=== PATIENT | female | born 1980 | race American Indian/Alaskan Native ===

== ENCOUNTER 2017-09-11 10:42 | Emergency (ER) | payer SELFPAY ==
--- NOTE | 2017-09-11 15:58 | Emergency Department Report ---
Abscess Boil HPI - HPI Chief Complaint: Extremity Injury, Upper Stated Complaint: INFECTED FINGER Time Seen by Provider: 09/11/17 15:58 Duration: 1 Week Location: Upper Extremity (right middle finger around nailbed. Pain at 9 out of 10, throbbing and worse with movement better with rest) Severity: Moderate History: Yes Pain (right middle finger nailbed), Yes Numbness (some numbness on- and-off), Yes Previous History, No Fever, No Purulent Drainage, No Foreign Body , No Insect Bite HPI: Patient reports that she has some infection around her nail bed of the right middle finger of right hand. She says she was cleaning chicken and she believes some of the juice got under her finger . She reports swelling and redness but also reports that she bites her nails and similar incident in the past. Patient said it feels numb on and off at the tip of her finger. Denies that the pain radiates to her right hand. She says she's been cleaning it with iodine and she says she put something on the skin that turned her skin darker than it usually is. Pain is better with movement rest and worse with movement. Denies any fever or chills. Denies any nausea or vomiting. Denies any restriction of movement fingers of right hand. Denies any nail bed injury. Home Medications: Previous Rx's Medication Instructions Recorded Last Taken Type Cephalexin [Keflex] 500 mg PO Q8HR 10 Days #30 cap 09/11/17 Unknown Rx Ibuprofen [Motrin] 600 mg PO Q8H PRN #12 tablet 09/11/17 Unknown Rx Allergies/Adverse Reactions: Allergies Allergy/AdvReac Type Severity Reaction Status Date / Time No Known Allergies Allergy Unverified 12/13/15 04:48 ED Review of Systems ROS: Stated complaint: INFECTED FINGER Other details as noted in HPI Constitutional: denies: chills, fever Eyes: denies: eye pain, eye discharge, vision change ENT: denies: ear pain, throat pain Respiratory: denies: cough, shortness of breath, SOB with exertion, SOB at rest , wheezing Cardiovascular: denies: chest pain, palpitations Endocrine: no symptoms reported Gastrointestinal: abdominal pain. denies: nausea, vomiting Genitourinary: discharge Musculoskeletal: joint swelling, arthralgia. denies: back pain Skin: change in color, other (redness, swelling and pain to right middle finger. ). denies: rash, lesions Neurological: numbness (right middle finger on and off) Psychiatric: denies: anxiety, depression ED Past Medical Hx - Past Medical History Previous Medical History?: Yes Additional medical history: Ectopic - Surgical History Past Surgical History?: No - Family History Family history: hypertension - Social History Smoking Status: Current Every Day Smoker Substance Use Type: Alcohol Other Social History: and lives with family - Medications Home Medications: Home Medications Medication Instructions Recorded Confirmed Last Taken Type Cephalexin [Keflex] 500 mg PO Q8HR 10 Days #30 cap 09/11/17 Unknown Rx Ibuprofen [Motrin] 600 mg PO Q8H PRN #12 tablet 09/11/17 Unknown Rx ED Abscess Boil Physical Exam - Exam General: Vital signs noted. No distress. Alert and acting appropriately. 37-year-old female well-nourished well-developed in no acute distress. Front/Back of Body, Lg (Color): 1 - Patient with redness, swelling, tenderness, indurated with minimal fluctuation to the distal phalanx of right middle finger. No drainage noted. Tetanus vaccine is updated. He procedure note for details of incision and drainage Size: 1 cm Exam: Yes Tenderness (right distal middle finger), Yes Fluctuance (minimal fluctuance right distal middle finger), Yes Surrounding Cellulites/Erythema ( right distal middle finger), Yes Normal Neurologic Exam (alert and oriented 3, normal gait.), Yes Normal Circulation (no clubbing, cyanosis or edema. +2 pulses in all extremities and no neurovascular compromise), No Lymphangitis, No Crepitation, No Heart Murmur (S1, S2. Regular rate and rhythm) Exam: Lungs: Clear to auscultate bilaterally, no rhonchi wheezes or rales. Skin : Patient with indurated, minimal fluctuance, erythema and tenderness to palpate to right middle finger distal phalanx. No nailbed involvement. Patient also has hyperpigmented areas to dorsal aspect of all phalanx of her right and left fingers. She says she was told she smokes. No lesions or rash noted. Skin is clean and dry and intact. Psych: Normal mood and behavior I & D Note - I & D Note I & D Note: Incision and drainage paronychia: Under sterile procedure, right distal middle finger at phalanx tented iodine followed by normal saline. 1 mL of 0.25%. Bupivacaine without epi instilled around the site. Small amount of pus expressed from site after #18-gauge needle used to make small opening the fluctuant area. Patient tolerated procedure well. Area cleansed and sterile dry dressing placed inside. Boostrix vaccine updated. ED Course Vital Signs 09/11/17 10:47 Temperature 98.1 F Pulse Rate 76 Blood Pressure 142/95 O2 Sat by Pulse 99 Oximetry Vital Signs 09/11/17 09/11/17 10:47 17:46 Temperature 98.1 F 98.8 F Pulse Rate 76 66 Respiratory 18 Rate Blood Pressure 142/95 Blood Pressure 123/86 [Left] O2 Sat by Pulse 99 100 Oximetry - Reevaluation(s) Reevaluation #1: 09/11/17 18:28 Patient given Keflex 500 mg emergency room for paronychia, Motrin 800 mg by mouth for pain and booster 0.5 mL to update tetanus. Please see procedure note for details on incision and drainage of paronychia. Critical care attestation.: If time is entered above; I have spent that time in minutes in the direct care of this critically ill patient, excluding procedure time. ED Medical Decision Making - Medical Decision Making ED course: Patient with Paronychia to her right middle finger after biting nail frequently. Incision and drainage done to paronychia. Please refer to procedure note for details. Patient was given Motrin 800 mg by mouth and emergency room preprocedure for pain, Keflex 500 mg by mouth for cellulitis and abscess and Boostrix 0.5 mL to update tetanus. She had no adverse reaction from medication. I discussed the patient that she needs to stop smoking and because she has areas to fingers that are hyperpigmented and she states that she was told because he is from smoking. She denies given any pain in fingers on a regular basis or at all. I also instructed her she is to stop nailbiting. This leads infection. Patient was undescended discharge instruction, diagnosis and need for follow-up. She says she feels better and discharged home with prescription for Keflex, Motrin and to follow up with primary care physician in 2-3 days if she does not have one to follow up with [facility]. ED Disposition Clinical Impression: Paronychia of right middle finger, Cellulitis of right middle finger, Finger pain, right, Nicotine abuse Disposition: TO HOME OR SELFCARE Is pt being admited?: No Does the pt Need Aspirin: No Condition: Stable Instructions: Paronychia (ED), Arthralgia (ED), How to Stop Smoking (ED) Additional Instructions: Please refer to discharge instruction paperwork on how to stop smoking. Take antibiotic as prescribed for cellulitis and abscess of finger Take Motrin as prescribed for pain but please do not take on an empty stomach as it causes nausea and can cause irritation to stomach lining Follow-up with primary care physician in 2-3 days and if he do not have a primary care physician follow-up without [facility] warm compresses to affected site 3-4 times a day to facilitate soft pain and drainage. Prescriptions: Cephalexin [Keflex] 500 mg PO Q8HR 10 Days #30 cap Ibuprofen [Motrin] 600 mg PO Q8H PRN #12 tablet PRN Reason: Pain Referrals: PRIMARY CARE, [Primary Care Provider] - 2-3 Days [facility] [Outside] - 2-3 Days Forms: Work/School Release Form(ED)
[2017-09-11] MEDS: BOOSTRIX IM ONE (16:22)
[2017-09-11] MEDS: KEFLEX PO ONE (16:24)
[2017-09-11] MEDS: MOTRIN PO ONE (16:24)
[2017-09-11] MEDS: MARCAINE 0.25% INFILTRATI ONE (16:24)
[2017-09-11 17:47] VITALS: BP 123/86
== END 2017-09-11 18:39 | disposition home or self-care (01) ==
LOC: ED 10:42
DX: L03.011 Cellulitis of right finger (principal)
CPT/HCPCS: 90471; 90715; 99282

== ENCOUNTER 2018-11-20 12:56 | Emergency (ER) | payer SELFPAY ==
--- NOTE | 2018-11-20 13:06 | Event Note ---
ED Screening Note Date of service: 11/20/18 Time: 13:02 ED Screening Note: 38 y/o female comes in with abd pain and n/v. Admits to drinking and smoking weed and cig This initial assessment/diagnostic orders/clinical plan/treatment(s) is/are subject to change based on patients health status, clinical progression and re- assessment by fellow clinical providers in the ED. Further treatment and workup at subsequent clinical providers discretion. Patient/guardian urged not to elope from the ED as their condition may be serious if not clinically assessed and managed. Initial orders include:
[2018-11-20 13:34] LABS: Basophils % (Auto) 0.3 % (0.0-1.8); Hematocrit 41.1 % (30.3-42.9); Lymphocytes # (Auto) 1.1 K/mm3 (1.2-5.4); Mean Corpuscular HGB Conc 34 % (30-34); Mean Corpuscular Hemoglobin 33 pg (28-32); Mean Corpuscular Volume 95 fl (79-97); Monocytes # (Auto) 0.8 K/mm3 (0.0-0.8); Monocytes % (Auto) 5.2 % (0.0-7.3); Red Blood Count 4.32 M/mm3 (3.65-5.03); Red Cell Distribution Width 13.3 % (13.2-15.2)
[2018-11-20 13:52] LABS: Alanine Aminotransferase 26 units/L (7-56); Albumin 4.6 g/dL (3.9-5); BUN/Creatinine Ratio 18; Blood Urea Nitrogen 11 mg/dL (7-17); Calcium 9.4 mg/dL (8.4-10.2); Hemolysis Index 85; Lipase 17 units/L (13-60)
[2018-11-20 14:07] LABS: Platelet Count 223 K/mm3 (140-440)
--- NOTE | 2018-11-20 14:10 | Emergency Department Report ---
ED Abdominal Pain HPI - General Chief Complaint: Abdominal Pain Stated Complaint: ABD PAIN Source: patient, EMS Mode of arrival: Stretcher Limitations: No Limitations - History of Present Illness Initial Comments: 8-year-old female complains of left lower quadrant pain since this morning. She states he vomited times one. She's had no diarrhea. There's been no fever or chills. She refers the onset of her menses. She said no vaginal discharge. She is concerned as she has history of left salpingectomy for ectopic . MD Complaint: abdominal pain -: hour(s) Location: LLQ Radiation: none Migration to: no migration Severity: moderate Severity scale (0 -10): 6 Quality: cramping Consistency: now resolved Improves With: nothing Worsens With: nothing Associated Symptoms: denies other symptoms, vomiting - Related Data Previous Rx's Medication Instructions Recorded Last Taken Type Ibuprofen [Motrin] 600 mg PO Q8H PRN #12 tablet 09/11/17 Unknown Rx cephALEXin [Keflex] 500 mg PO Q8HR 10 Days #30 cap 09/11/17 Unknown Rx Allergies Allergy/AdvReac Type Severity Reaction Status Date / Time No Known Allergies Allergy Unverified 12/13/15 04:48 ED Review of Systems ROS: Stated complaint: ABD PAIN Other details as noted in HPI Constitutional: denies: chills, fever Eyes: denies: eye pain, eye discharge, vision change ENT: denies: ear pain, throat pain Respiratory: denies: cough, shortness of breath, wheezing Cardiovascular: denies: chest pain, palpitations Endocrine: no symptoms reported Gastrointestinal: abdominal pain, vomiting. denies: nausea (not persistent), diarrhea Genitourinary: denies: urgency, dysuria, discharge Musculoskeletal: denies: back pain, joint swelling, arthralgia Skin: denies: rash, lesions Neurological: denies: headache, weakness, paresthesias Psychiatric: denies: anxiety, depression Hematological/Lymphatic: denies: easy bleeding, easy bruising ED Past Medical Hx - Past Medical History Previous Medical History?: No Additional medical history: Ectopic - Surgical History Past Surgical History?: Yes Additional Surgical History: Left Ectopic 2003 - Social History Smoking Status: Current Some Day Smoker Substance Use Type: Alcohol, Marijuana - Medications Home Medications: Home Medications Medication Instructions Recorded Confirmed Last Taken Type Ibuprofen [Motrin] 600 mg PO Q8H PRN #12 tablet 09/11/17 Unknown Rx cephALEXin [Keflex] 500 mg PO Q8HR 10 Days #30 cap 09/11/17 Unknown Rx ED Physical Exam - General Limitations: No Limitations General appearance: alert, in no apparent distress - Head Head exam: Present: atraumatic, normocephalic - Eye Eye exam: Present: normal appearance. Absent: scleral icterus - ENT ENT exam: Present: mucous membranes moist - Neck Neck exam: Present: normal inspection - Respiratory Respiratory exam: Present: normal lung sounds bilaterally. Absent: respiratory distress - Cardiovascular Cardiovascular Exam: Present: regular rate, normal rhythm. Absent: systolic murmur, diastolic murmur, rubs, gallop - GI/Abdominal GI/Abdominal exam: Present: soft, normal bowel sounds. Absent: distended, tenderness, guarding, rebound, rigid - Extremities Exam Extremities exam: Present: normal inspection - Back Exam Back exam: Present: normal inspection - Neurological Exam Neurological exam: Present: alert, oriented X3, CN II-XII intact. Absent: motor sensory deficit - Psychiatric Psychiatric exam: Present: normal affect, normal mood - Skin Skin exam: Present: warm, dry, intact, normal color. Absent: rash ED Course Vital Signs 11/20/18 11/20/18 12:59 14:25 Temperature 97.9 F Pulse Rate 64 Respiratory 18 18 Rate Blood Pressure 104/71 Blood Pressure 104/71 [Left] O2 Sat by Pulse 100 18 L Oximetry - Reevaluation(s) Reevaluation #1: Symptoms resolved and patient desires discharge. Repeat examination of the abdomen was completely nontender and normal. She is advised to follow-up. 11/20/18 16:57 ED Medical Decision Making - Lab Data Result diagrams: 11/20/18 13:08 11/20/18 13:08 Laboratory Results - last 24 hr 11/20/18 11/20/18 13:08 13:08 WBC 15.7 H RBC 4.32 Hgb 14.0 Hct 41.1 MCV 95 MCH 33 H MCHC 34 RDW 13.3 Plt Count 223 Lymph % (Auto) 7.0 L [place] % (Auto) 5.2 Eos % (Auto) 0.0 Baso % (Auto) 0.3 Lymph # 1.1 L [place] # 0.8 Eos # 0.0 Baso # 0.0 Seg Neutrophils % 87.5 H Seg Neutrophils # 13.8 H Sodium 142 Potassium 4.6 Chloride 100.1 Carbon Dioxide 22 Anion Gap 25 BUN 11 Creatinine 0.6 L Estimated GFR > 60 BUN/Creatinine Ratio 18 Glucose 65 Calcium 9.4 Total Bilirubin 0.60 ALT 26 Alkaline Phosphatase 66 Total Protein 8.9 H Albumin 4.6 Albumin/Globulin Ratio 1.1 Lipase 17 - Radiology Data Radiology results: report reviewed (patient refused transvaginal, transabdominal ultrasound was normal.) Critical care attestation.: If time is entered above; I have spent that time in minutes in the direct care of this critically ill patient, excluding procedure time. ED Disposition Clinical Impression: Left lower quadrant pain Disposition: DC-01 TO HOME OR SELFCARE Is pt being admited?: No Does the pt Need Aspirin: No Condition: Stable Instructions: Abdominal Pain (ED) Additional Instructions: Further evaluation is recommended should pain recur. Return to the emergency department. See follow-up referral. Referrals: GUERITA LEONARD MD [Primary Care Provider] - 2-3 Days Time of Disposition: 16:58
[2018-11-20 14:44] LABS: Bilirubin,Urine NEG (Negative); Blood,Urine LG (Negative); Color,Urine Yellow (Yellow); Mucus,Urine FEW /HPF; Urobilinogen,Urine < 2.0 mg/dL (<2.0)
[2018-11-20 14:49] LABS: HCG Qualitative,Urine Negative (Negative)
--- NOTE | 2018-11-20 15:40 | Ultrasound Report ---
ULTRASOUND PELVIS INDICATION / CLINICAL INFORMATION: left lower quadrant pain.. TECHNIQUE: Transabdominal. Patient declined transvaginal ultrasound at this time. Duplex Color Doppler used: Yes. COMPARISON: None available FINDINGS: UTERUS: Present. - Appearance (if present): No significant abnormality. - Size in cm (if present): 6.0 x 3.1 x 4.3 cm. - Endometrial Complex (if present): No significant abnormality.. Thickness in cm (if measured) = 3-4 mm - Mass lesions: None. - Additional findings: None. RIGHT ADNEXA: No significant ovarian cyst or mass. Normal color Doppler blood flow. The right ovary m easures 3.2 x 2.0 x 2.0 cm LEFT ADNEXA: No significant ovarian cyst or mass. Normal color Doppler blood flow. The left ovary iram sures 2.5 x 1.3 x 2.4 cm FREE FLUID: None. ADDITIONAL FINDINGS: None. IMPRESSION: 1. No significant abnormality. 2. Patient declined transvaginal exam. If clinical symptoms continue, transvaginal exam could provide more detailed information. Signer Name: Ela Castro MD Signed: 11/20/2018 3:36 PM Workstation Name: [id number]
[2018-11-20 18:26] VITALS: BP 100/58
== END 2018-11-20 18:26 | disposition home or self-care (01) ==
LOC: ED 12:56
DX: R10.32 Left lower quadrant pain (principal); R11.10 Vomiting, unspecified; F17.200 Nicotine dependence, unspecified, uncomplicated; F12.10 Cannabis abuse, uncomplicated; Z79.899 Other long term (current) drug therapy
CPT/HCPCS: 36415; 76856; 80053; 81001; 81025; 83690; 84702; 85025